=== PATIENT | female | born 2000 | race African-American/Black ===

== ENCOUNTER 2020-05-12 03:34 | Emergency (ER) | payer OTHER ==
[~2020-05-12] VITALS: Ht 170.2 cm; Wt 63.5 kg
[2020-05-12] MEDS ORDERED: NEXP1IMP SC (03:42)
[2020-05-12] MEDS ORDERED: ACETAMINOPHEN TAB 650MG DOSE (2X325MG) PO ONE (05:00)
[2020-05-12] MEDS ORDERED: IBUPROFEN 800 MG TAB PO ONE (05:00)
[2020-05-12 05:33] VITALS: BP 114/65
== END 2020-05-12 05:34 | disposition home or self-care (01) ==
LOC: M ED 03:34 → EDSEX 03:34 → M ED 05:34
DX: N63.0 Unspecified lump in unspecified breast (principal); Z79.3 Long term (current) use of hormonal contraceptives

== ENCOUNTER 2021-05-30 15:51 | Emergency (ER) | payer OTHER ==
[~2021-05-30] VITALS: Ht 167.6 cm; Wt 74.8 kg
[~2021-05-30 15:51] MED LIST: NEXP1IMP SC
[2021-05-30 20:50] LABS: URINE PREG TEST NEGATIVE (NEGATIVE)
[2021-05-30 20:51] LABS: APPEARANCE, URINE CLEAR (CLEAR); BACTERIA, URINE AUTO NEGATIVE (NEGATIVE); BILIRUBIN, URINE AUTO NEGATIVE (NEGATIVE); BLOOD, URINE BLOOD NEGATIVE (NEGATIVE); COLOR, URINE YELLOW (YELLOW); GLUCOSE, URINE (UA) AUTO NEGATIVE (NEGATIVE); KETONE, URINE AUTO NEGATIVE (NEGATIVE); LEUKOCYTE ESTERASE, URINE AUTO NEGATIVE (NEGATIVE); MUCUS, URINE SMALL (NEGATIVE); NITRITE, URINE AUTO NEGATIVE (NEGATIVE); PROTEIN, URINE AUTO NEGATIVE (NEGATIVE); RBC, URINE AUTO 1 /HPF (0-3); SPECIFIC GRAVITY URINE AUTO 1.013 (1.002-1.035); SQUAMOUS EPITHELIAL CELL UR AU 0 /HPF (0-6); UROBILINOGEN, URINE AUTO 0.2 mg/dL (0.0-2.0); WBC, URINE AUTO 1 /HPF (0-3)
[2021-05-30] MEDS ORDERED: ONDA4TAB6 PO (21:04)
[2021-05-30] MEDS ORDERED: METR-265 PO (21:04)
[2021-05-30] MEDS ORDERED: ONDANSETRON 4 MG ORAL DISINTEGRATING TAB PO ONE (21:05)
[2021-05-30] MEDS ORDERED: metroNIDAZOLE (FLAGYL) 500MG TABLET PO ONE (21:05)
[2021-05-30] MEDS ORDERED: METR1GEL7 PV (21:08)
[2021-05-30 21:13] VITALS: BP 113/63
[2021-05-30 22:12] LABS: GC DNA AMPLIFICATION NEGATIVE (NEGATIVE)
== END 2021-05-30 21:19 | disposition home or self-care (01) ==
LOC: M ED 15:51
DX: N76.0 Acute vaginitis (principal); Z97.5 Presence of (intrauterine) contraceptive device

== ENCOUNTER → 2022-02-27 | Outpatient (REF) | payer OTHER ==
[~2022-02-27] MED LIST changes: +ETON68IM SC; +METR-265 PO; +METR1GEL7 PV; -NEXP1IMP SC; +ONDA4TAB6 PO
== END ==
LOC: M LAB REF 16:16
PROVIDERS: ATTEND Physician Assistant
DX: N75.0 Cyst of Bartholin's gland (principal)

== ENCOUNTER 2022-09-15 07:04 | Day surgery (SDC) | payer OTHER ==
[~2022-09-15] VITALS: Ht 167.6 cm; Wt 70.3 kg
[~2022-09-15 07:04] MED LIST changes: +LR 1,000 ML IV SCH; +MEPERIDINE 25 MG/ML 1ML VIAL IV PRN; +ONDANSETRON 4MG 2ML VIAL IV PRN; +fentaNYL 100 MCG/2 ML INJECTION IV PRN
[2022-09-15] MEDS ORDERED: LR 1,000 ML IV SCH ×2 (07:20→08:20)
[2022-09-15 07:32] LABS: HEMOGLOBIN 14.2 g/dl (12.0-15.5)
[2022-09-15] MEDS ORDERED: propofoL 200 MG/20 ML VIAL As Ordered ONE (09:47)
[2022-09-15] MEDS ORDERED: LIDOCAINE 2% 100MG/5ML SDV (FOR ANES.) As Ordered ONE (09:47)
[2022-09-15] MEDS ORDERED: MIDAZOLAM INJ 2MG/2ML VIAL As Ordered ONE (09:47)
[2022-09-15] MEDS ORDERED: fentaNYL 100 MCG/2 ML INJECTION As Ordered ONE (09:47)
[2022-09-15] MEDS ORDERED: KETOROLAC 60MG 2ML VIAL As Ordered ONE (09:47)
[2022-09-15] MEDS ORDERED: ESTROGENS VAGINAL CREAM 30GM As Ordered ONE (11:34)
[2022-09-15] MEDS ORDERED: BUPIVACAINE HCL 0.25% 30ML VIAL As Ordered ONE (11:34)
[2022-09-15 13:25] VITALS: BP 112/66
== END 2022-09-15 13:45 | disposition home or self-care (01) ==
LOC: M SDC 07:04
PROVIDERS: ATTEND Obstetrics & Gynecology
DX: N75.0 Cyst of Bartholin's gland (principal)
CPT/HCPCS: 36415; 56440; 81025; 85014; 85018; 86850; 86900; 86901; C1727; J1885; J2250; J3010; S0020